=== PATIENT | female | born 1960 | race Caucasian/White ===

== ENCOUNTER → 2017-05-05 | Outpatient (CLI) | payer MEDICARE, OTHER ==
[~2017-05-05] MED LIST: ASMANEX TW0.22 MG/A1 IH; ASPIRIN 81M81 MG/TA2 PO; BENADRYL25 M2 PO; BUSPAR10 MG PO; COLACE 100100 MG/CAP PO; DETROL LA4 PO; FLEXERIL 1010 MG/TAB PO; FOLIC ACID 11 MG/TA1 PO; LIPITOR 80MG80 MG PO; LORTAB 5/500 501 TAB PO; METHOTREXA2.5 MG/TAB PO; MUCINEX1200 MG PO; MULTIPLE VITAMI1 TAB PO; PERCOCET 325 MG1 TA2 PO; PREMARIN VAG42.5 GM VG; PROTONIX20 MG PO; RITUXAN 50500 MG/50 IV; SOLU-MEDRO125 MG/21 IV; TYLENOL 325MG325 MG PO; TYLENOL ARTHRI650 M1 PO; VITAMIN D5000 IU PO; XANAX .25M0.25 MG/TA; ZESTORETIC 12.51 TA1 PO; ZOLOFT 100MG100 MG PO; ZOVIRAX 200MG200 MG PO
== END ==
LOC: COL.RAD 12:37
DX: G45.0 Vertebro-basilar artery syndrome (principal)
CPT/HCPCS: J7050; Q9967